=== PATIENT | female | born 1945 | race Caucasian/White ===

== ENCOUNTER → 2018-01-26 | Day surgery (SDC) | payer OTHER ==
[~2018-01-26] MED LIST: HYDR-2769 PO; IV RINGERS,LACTATED 1000ML 1,000 ML IV SCH; LEVO500T59 PO; LEVO75TA5 PO; OMEP40CA5 PO; PROPOFOL 40 ML IV ONE; TIOT18CA IH
--- NOTE | 2018-01-26 10:42 | PDOC1 ---
HISTORY & PHYSICAL H&P see attached H&P from my office that is on the chart. SELENA XIE MD Jan 26, 2018 10:42
[2018-01-26 12:11] VITALS: BP 151/67
--- NOTE | 2018-01-27 16:09 | PATHOLOGY ---
[facility] Accession Number: [id number] . 01 Material submitted: . SIGMOID COLON POLYP . 01 Clinical history: . Hx of colon polyps . 02 Diagnosis: Colon biopsy, sigmoid colon polyp: - Tubulovillous adenoma. (JPM:federica; 01/27/2018) QMS/01/27/2018 . 02 Comment: There is no high-grade dysplasia or evidence of malignancy. . 02 Electronically signed: . Aureliano Newberry MD, Pathologist NPI- [id number] . 01 Gross description: . Received in formalin labeled "Jennifer Reese, sigmoid colon polyp BX," is a single segment of kwok soft tissue measuring 0.5 cm in maximum dimension. The specimen is entirely submitted in cassette A1. (TSD; 01/26/2018) TOB/TOB . 02 Pathologist provided ICD-10: D12.5 . 02 CPT . 838097 Specimen Comment: A courtesy copy of this report has been sent to Specimen Comment: [phone], . Specimen Comment: Report sent to / DR LOYOLA Specimen Comment: A duplicate report has been generated due to demographic updates. Performed at: 01 [facility] [address], [place] [id number] MD Aravind Samuel MD Phone: [phone] Performed at: 02 [facility] [address] [place], [place] [id number] MD Aureliano Newberry MD Phone: [phone]
== END | disposition home or self-care (01) ==
LOC: SURG 10:41
PROVIDERS: ATTEND Internal Medicine Gastroenterology
DX: Z12.11 Encounter for screening for malignant neoplasm of colon (principal); D12.5 Benign neoplasm of sigmoid colon; Z86.010 Personal history of colon polyps; Z88.5 Allergy status to narcotic agent; J44.9 Chronic obstructive pulmonary disease, unspecified; M81.0 Age-related osteoporosis without current pathological fracture; M19.90 Unspecified osteoarthritis, unspecified site; E03.9 Hypothyroidism, unspecified; K21.9 Gastro-esophageal reflux disease without esophagitis; I10 Essential (primary) hypertension; Z87.440 Personal history of urinary (tract) infections; Z87.891 Personal history of nicotine dependence; Z79.82 Long term (current) use of aspirin; Z79.899 Other long term (current) drug therapy
CPT/HCPCS: 45380; 45381; 88305; J2704